=== PATIENT | male | born 1960 | race Caucasian/White ===

== ENCOUNTER 2022-03-17 20:50 | Emergency (ER) | payer OTHER ==
[~2022-03-17] VITALS: Ht 182.9 cm; Wt 98.0 kg
[~2022-03-17 20:50] MED LIST: ATOR10 PO; LISI1TAB51 PO; TAMS-1 PO
[2022-03-17 21:55] LABS: EOSINOPHILS % (AUTO) 3.9 % (0.0-8.0); HEMATOCRIT 39.5 % (42-54); LYMPHOCYTES % (AUTO) 20.6 % (21.0-51.0); MEAN CORPUSCULAR HEMOGLOBIN 29.1 pg (27.0-33.0); MEAN CORPUSCULAR HGB CONC 33.2 g/dL (32.0-36.0); MEAN CORPUSCULAR VOLUME 87.8 fL (79-99); MONOCYTES % (AUTO) 6.9 % (3.0-13.0); NEUTROPHILS % (AUTO) 67.2 % (40.0-77.0); PLATELET COUNT (AUTO) 220 K/uL (130-400); RED CELL DISTRIBUTION WIDTH 12.4 % (11.0-15.5); WHITE BLOOD COUNT (AUTO) 8.3 K/uL (4.8-10.8)
[2022-03-17 21:56] LABS: APPEARANCE,URINE Clear (CLEAR); BILIRUBIN,URINE Negative (NEGATIVE); COLOR,URINE Yellow (YELLOW); GLUCOSE, URINE (UA) Negative (NEGATIVE); KETONES,URINE Trace mg/dL (NEGATIVE); LEUKOCYTE ESTERASE ,URINE Trace (NEGATIVE); NITRATE,URINE Negative (NEGATIVE); OCCULT BLOOD,URINE Negative (NEGATIVE); PROTEIN,URINE Negative (NEGATIVE)
[2022-03-17 22:06] LABS: CREATININE 0.8 mg/dL (0.5-1.5); POTASSIUM 3.6 mmol/L (3.5-5.1)
[2022-03-17 22:10] LABS: ALBUMIN 3.9 g/dL (3.5-5.0); BILIRUBIN,TOTAL 0.6 mg/dL (0.2-1.0); TOTAL PROTEIN, SERUM 6.9 g/dL (6.0-8.3)
[2022-03-17 22:13] LABS: AMORPHOUS SEDIMENT,UR Rare /LPF (None Seen); BACTERIA,URINE Rare /HPF (None Seen); RBC,URINE 0-1 /HPF (0-1); SQUAMOUS EPITHELIAL CELL,UR Rare /HPF (0-2)
[2022-03-17 22:39] VITALS: BP 122/55
== END 2022-03-17 23:48 | disposition home or self-care (01) ==
LOC: EDH 20:50
DX: R10.9 Unspecified abdominal pain (principal); K56.609 Unspecified intestinal obstruction, unspecified as to partial versus complete obstruction; E78.00 Pure hypercholesterolemia, unspecified; I10 Essential (primary) hypertension; Z88.0 Allergy status to penicillin; Z88.1 Allergy status to other antibiotic agents; Z79.899 Other long term (current) drug therapy; Z98.890 Other specified postprocedural states
CPT/HCPCS: 36415; 80053; 81001; 84484; 85025; 93005

== ENCOUNTER 2024-06-26 03:46 | Inpatient (IN) | payer BC, MEDICARE ==
[~2024-06-26] VITALS: Ht 185.4 cm; Wt 86.2 kg
[~2024-06-26 03:46] MED LIST changes: +CYAN500T9 PO; +MULT-1367 PO
[2024-06-26] MEDS: ondanSETRON 4MG INJ IVP ONE (04:11)
[2024-06-26] MEDS: LACTATED RINGERS 1000ML 1,000 ML IV ONE (04:12)
[2024-06-26] MEDS: morPHINE 2 MG SYG IVP ONE (04:24)
[2024-06-26 04:25] LABS: BASOPHILS # (AUTO) 0.03 K/uL (0.00-0.20); BASOPHILS % (AUTO) 0.3 % (0.0-5.0); EOSINOPHILS # (AUTO) 0.27 K/uL (0.00-0.70); EOSINOPHILS % (AUTO) 2.7 % (0.0-8.0); HEMATOCRIT 43.4 % (42-54); IMMATURE GRANULOCYTE ABSOLUTE 0.03 K/uL (0-1); LYMPHOCYTES # (AUTO) 0.7 K/uL (1.0-4.8); LYMPHOCYTES % (AUTO) 7.5 % (21.0-51.0); MEAN CORPUSCULAR HGB CONC 34.3 g/dL (32.0-36.0); MEAN CORPUSCULAR VOLUME 87.3 fL (79-99); MONOCYTES # (AUTO) 0.6 K/uL (0.1-1.0); MONOCYTES % (AUTO) 6.5 % (3.0-13.0); NEUTROPHILS # (AUTO) 8.1 K/uL (1.8-7.7); NEUTROPHILS % (AUTO) 82.7 % (40.0-77.0); PLATELET COUNT (AUTO) 229 K/uL (130-400); RED BLOOD CELL COUNT(AUTO) 4.97 MIL/uL (4.50-6.20); RED CELL DISTRIBUTION WIDTH 12.2 % (11.0-15.5); WHITE BLOOD COUNT (AUTO) 9.8 K/uL (4.8-10.8)
[2024-06-26] MEDS ORDERED: morPHINE 4 MG SYG IVP ONE (04:30)
[2024-06-26 04:35] LABS: CREATININE 1.1 mg/dL (0.5-1.3); POTASSIUM 3.3 mmol/L (3.5-5.1)
[2024-06-26 04:39] LABS: ALBUMIN 4.1 g/dL (3.5-5.0); BILIRUBIN,TOTAL 0.8 mg/dL (0.2-1.0); TOTAL PROTEIN, SERUM 7.4 g/dL (6.0-8.3)
[2024-06-26] MEDS ORDERED: acetaMINOPHEN 325 MG/10.15ML UDCUP GT PRN (07:00)
[2024-06-26] MEDS: 0.9%NACL 1000ML 1,000 ML IV SCH (07:53)
[2024-06-26] MEDS ORDERED: NITROGLYCERIN 0.4 MG SL TAB SL PRN (08:30)
[2024-06-26] MEDS ORDERED: ondanSETRON 4MG INJ IV PRN (08:30)
[2024-06-26] MEDS ORDERED: PoTASSium chloRIDE 10MEQ SR 10 MEQ/TAB TAB.SR.24H PO PRN (08:30)
[2024-06-26] MEDS ORDERED: PoTASSium chl 10% ELIXIR 20MEQ 20 MEQ/15 ML UDCUP PO PRN (08:30)
[2024-06-26] MEDS ORDERED: MAGNESIUM 2GM PREMIX 50ML 50 ML IV PRN (08:30)
[2024-06-26] MEDS ORDERED: GLUCAGON 1MG KIT 1 MG ML IM PRN (08:30)
[2024-06-26] MEDS ORDERED: guaiFENesin-DM 200/20MG 10ML PO PRN (08:30)
[2024-06-26] MEDS ORDERED: PoTASSium chloRIDE 10MEQ/100ML 100 ML IV PRN (08:30)
[2024-06-26] MEDS ORDERED: LACTULOSE 20 GM/30 ML UDCUP PO PRN (08:30)
[2024-06-26] MEDS ORDERED: acetaMINOPHEN 325 MG TAB PO PRN ×3 (08:30)
[2024-06-26] MEDS ORDERED: ZOLPidem TARTrate 5 MG TAB PO PRN (08:30)
[2024-06-26] MEDS ORDERED: hydrALAZine 20MG/ML VIAL IV PRN (08:30)
[2024-06-26] MEDS ORDERED: FAMOTIDINE 20MG VIAL IV PRN (08:30)
[2024-06-26] MEDS ORDERED: DiphenhydrAMINE HCL 50 MG/ML VIAL IV PRN (08:30)
[2024-06-26] MEDS ORDERED: DEXTROSE 50%-WATER 50 ML DISP.SYRIN IV PRN (08:30)
[2024-06-26] MEDS ORDERED: MAG/ALUM/SIMETH 30 ML UDCUP PO PRN (08:30)
[2024-06-26] MEDS ORDERED: HEParin 5,000 UNIT VIAL SQ SCH (09:00)
[2024-06-26] MEDS: ENOXAPARIN SODIUM 40 MG/0.4 ML SYRINGE SQ SCH (09:33)
[2024-06-26] MEDS: FAMOTIDINE 20MG VIAL IV SCH (09:34)
[2024-06-26] MEDS: LACTATED RINGERS 1000ML 1,000 ML IV SCH (09:34)
[2024-06-26] MEDS: INSULIN humuLIN R 100 UNIT/ML 3ML SQ SCH (11:30)
[2024-06-26] MEDS: ondanSETRON 4MG INJ IVP PRN (13:45)
[2024-06-26] MEDS: morPHINE 2 MG SYG IVP PRN (13:49)
[2024-06-26 17:20] VITALS: BP 146/75; PULSE 68; RESP 18; TEMP 98.5
[2024-06-26 17:28] VITALS: O2SAT 99
[2024-06-26] MEDS: ketOROlac 15MG/ML VIAL (15MG/ML) IV PRN (17:49)
[2024-06-26 20:00] VITALS: BP 137/59; PULSE 85; RESP 18; TEMP 98.6; O2SAT 97
[2024-06-27] VITALS (8 sets, daily range): BP systolic 112–130; BP diastolic 55–70; PULSE 65–74; RESP 18–20; TEMP 97.8–99.2; O2SAT 97–98
[2024-06-27 03:54] LABS: BASOPHILS # (AUTO) 0.05 K/uL (0.00-0.20); BASOPHILS % (AUTO) 0.6 % (0.0-5.0); EOSINOPHILS # (AUTO) 0.35 K/uL (0.00-0.70); HEMATOCRIT 40.8 % (42-54); IMMATURE GRANULOCYTE ABSOLUTE 0.03 K/uL (0-1); LYMPHOCYTES % (AUTO) 11.6 % (21.0-51.0); MEAN CORPUSCULAR HEMOGLOBIN 30.1 pg (27.0-33.0); MEAN CORPUSCULAR HGB CONC 33.1 g/dL (32.0-36.0); MEAN CORPUSCULAR VOLUME 90.9 fL (79-99); MONOCYTES # (AUTO) 0.7 K/uL (0.1-1.0); MONOCYTES % (AUTO) 7.7 % (3.0-13.0); NEUTROPHILS # (AUTO) 6.6 K/uL (1.8-7.7); NEUTROPHILS % (AUTO) 75.8 % (40.0-77.0); PLATELET COUNT (AUTO) 201 K/uL (130-400); RED BLOOD CELL COUNT(AUTO) 4.49 MIL/uL (4.50-6.20); RED CELL DISTRIBUTION WIDTH 12.1 % (11.0-15.5); WHITE BLOOD COUNT (AUTO) 8.7 K/uL (4.8-10.8)
[2024-06-27 04:18] LABS: HEMOGLOBIN A1C 5.4 % (4.0-6.0)
[2024-06-27 04:24] LABS: ALBUMIN 3.3 g/dL (3.5-5.0); BILIRUBIN,DIRECT 0.2 mg/dL (0.0-0.3); BILIRUBIN,TOTAL 0.6 mg/dL (0.2-1.0); MAGNESIUM 2.1 mg/dL (1.80-2.40); POTASSIUM 3.6 mmol/L (3.5-5.1); TOTAL PROTEIN, SERUM 6.2 g/dL (6.0-8.3)
[2024-06-27] MEDS: ondanSETRON 4MG INJ IVP PRN (16:39)
[2024-06-27] MEDS: MAGNESIUM CITRATE 296 ML SOLUTION ONE (16:39)
[2024-06-27] MEDS: levoFLOXacin 500 MG/D5W 100 ML 100 ML IV SCH (16:39)
[2024-06-27] MEDS: ENOXAPARIN SODIUM 40 MG/0.4 ML SYRINGE SQ SCH (21:16)
[2024-06-28] VITALS (7 sets, daily range): BP systolic 123–142; BP diastolic 56–70; PULSE 65–78; RESP 16–18; TEMP 97.8–99.1; O2SAT 97
[2024-06-28 09:19] LABS: BASOPHILS # (AUTO) 0.05 K/uL (0.00-0.20); BASOPHILS % (AUTO) 0.7 % (0.0-5.0); EOSINOPHILS # (AUTO) 0.34 K/uL (0.00-0.70); EOSINOPHILS % (AUTO) 4.4 % (0.0-8.0); HEMATOCRIT 37.5 % (42-54); IMMATURE GRANULOCYTE ABSOLUTE 0.01 K/uL (0-1); LYMPHOCYTES # (AUTO) 0.9 K/uL (1.0-4.8); LYMPHOCYTES % (AUTO) 12.2 % (21.0-51.0); MEAN CORPUSCULAR HGB CONC 34.1 g/dL (32.0-36.0); MONOCYTES # (AUTO) 0.6 K/uL (0.1-1.0); MONOCYTES % (AUTO) 7.9 % (3.0-13.0); NEUTROPHILS # (AUTO) 5.7 K/uL (1.8-7.7); NEUTROPHILS % (AUTO) 74.7 % (40.0-77.0); PLATELET COUNT (AUTO) 207 K/uL (130-400); RED BLOOD CELL COUNT(AUTO) 4.26 MIL/uL (4.50-6.20); RED CELL DISTRIBUTION WIDTH 11.9 % (11.0-15.5); WHITE BLOOD COUNT (AUTO) 7.7 K/uL (4.8-10.8)
[2024-06-28 09:30] LABS: ALBUMIN 3.3 g/dL (3.5-5.0); BILIRUBIN,TOTAL 0.6 mg/dL (0.2-1.0); CREATININE 0.9 mg/dL (0.5-1.3); POTASSIUM 3.5 mmol/L (3.5-5.1); TOTAL PROTEIN, SERUM 6.5 g/dL (6.0-8.3)
[2024-06-29] VITALS: BP 121/56; PULSE 62; RESP 18; TEMP 99.3
[2024-06-29 04:00] VITALS: BP 130/60; PULSE 56; RESP 18; TEMP 97.9
[2024-06-29 05:43] LABS: BASOPHILS # (AUTO) 0.04 K/uL (0.00-0.20); BASOPHILS % (AUTO) 0.7 % (0.0-5.0); EOSINOPHILS # (AUTO) 0.44 K/uL (0.00-0.70); EOSINOPHILS % (AUTO) 7.7 % (0.0-8.0); HEMATOCRIT 36.3 % (42-54); IMMATURE GRANULOCYTE ABSOLUTE 0.02 K/uL (0-1); LYMPHOCYTES % (AUTO) 18.1 % (21.0-51.0); MEAN CORPUSCULAR HGB CONC 34.2 g/dL (32.0-36.0); MEAN CORPUSCULAR VOLUME 87.9 fL (79-99); MONOCYTES # (AUTO) 0.6 K/uL (0.1-1.0); MONOCYTES % (AUTO) 10.8 % (3.0-13.0); NEUTROPHILS # (AUTO) 3.6 K/uL (1.8-7.7); NEUTROPHILS % (AUTO) 62.4 % (40.0-77.0); PLATELET COUNT (AUTO) 199 K/uL (130-400); RED BLOOD CELL COUNT(AUTO) 4.13 MIL/uL (4.50-6.20); RED CELL DISTRIBUTION WIDTH 11.9 % (11.0-15.5); WHITE BLOOD COUNT (AUTO) 5.7 K/uL (4.8-10.8)
[2024-06-29 06:09] LABS: BILIRUBIN,TOTAL 0.5 mg/dL (0.2-1.0); CREATININE 0.8 mg/dL (0.5-1.3); POTASSIUM 3.8 mmol/L (3.5-5.1); TOTAL PROTEIN, SERUM 6.2 g/dL (6.0-8.3)
[2024-06-29 08:00] VITALS: BP 131/66; PULSE 69; RESP 19; TEMP 97.5; O2SAT 96
[2024-06-29 12:16] VITALS: BP 121/84; PULSE 63; RESP 19; TEMP 98.5
[2024-06-29] MEDS ORDERED: PANT20TA18 PO (15:25)
[2024-06-29 16:00] VITALS: BP 107/66; PULSE 58; RESP 19; TEMP 97.9
== END 2024-06-29 17:20 | disposition home or self-care (01) | DRG 388 ==
LOC: EDH 03:46 → EDHIP 06:45 → 4BH 16:02
PROVIDERS: ADMIT Hospitalist; ATTEND Hospitalist
PROC: 0D9670Z Drainage of Stomach with Drainage Device, Via Natural or Artificial Opening (ICD-10-PCS; principal; 2024-06-26)
DX: K56.609 Unspecified intestinal obstruction, unspecified as to partial versus complete obstruction (principal); J69.0 Pneumonitis due to inhalation of food and vomit; N17.9 Acute kidney failure, unspecified; E87.6 Hypokalemia; I10 Essential (primary) hypertension; E86.0 Dehydration; E78.00 Pure hypercholesterolemia, unspecified; N40.0 Benign prostatic hyperplasia without lower urinary tract symptoms; E66.9 Obesity, unspecified; K59.00 Constipation, unspecified; Z87.442 Personal history of urinary calculi; Z88.0 Allergy status to penicillin; Z88.1 Allergy status to other antibiotic agents; Z87.891 Personal history of nicotine dependence; Z68.25 Body mass index [BMI] 25.0-25.9, adult
CPT/HCPCS: 36415; 71045; 74018; 74176; 80048; 80053; 80076; 82550; 82948; 83036; 83605; 83735; 83880; 84145; 85025; 96361; 96372; 96374; G0378; J1644; J1650; J1885; J1956; J2270; J2405; J3490; J7120; G8980-CH; G8983-CH